=== PATIENT | male | born 1995 | race African-American/Black ===

== ENCOUNTER 2022-12-23 19:59 | Inpatient (IN) | payer BC, SELFPAY ==
[2022-12-23 20:42] LABS: #Basophils 0.1 thou/uL (0.0-0.2); #Eosinphils 0.2 thou/uL (0.0-0.7); #Lymphocytes 2.7 thou/uL (1.20-3.40); #Monocytes 0.8 thou/uL (0.11-0.59); #Neutrophils 10.7 thou/uL (1.40-6.50); %Basophils 0.6 % (0.0-1.0); %Eosinophils 1.1 % (0.0-10.0); %Lymphocytes 18.7 % (21.0-51.0); %Monocytes 5.3 % (0.0-10.0); %Neutrophils 74.4 % (42.0-75.0); Hemoglobin 15.3 g/dL (14.0-18.0); Mean Corpuscular HGB CONC 34.6 g/dL (32.0-36.0); Mean Corpuscular Hemoglobin 30.9 pg (27.0-31.0); Mean Corpuscular Volume 89.2 fl (78.0-98.0); Mean Platelet Volume 7.8 fL (7.4-10.4); Platelet Count 202 10x3/uL (130-400); RBC Distribution Width 11.1 % (11.5-14.5); Red Blood Cell (RBC) Count 4.94 mill/uL (4.70-6.10); White Blood Cell (WBC) Count 14.4 10x3/uL (4.8-10.8)
[2022-12-23 20:52] LABS: ALT (SGPT) 29 U/L (8-55); AST (SGOT) 34 U/L (5-34); Albumin 4.3 g/dL (3.5-5.0); Alkaline Phosphatase 73 U/L (40-110); Anion Gap 14 mmol/L (10-20); BUN (Urea Nitrogen) 15 mg/dL (8.9-20.6); Bilirubin, Total 0.4 mg/dL (0.2-1.2); Calc. Creatinine Clearance 0 mL/min (70-130); Calcium 9.5 mg/dL (7.8-10.44); Carbon Dioxide 23 mmol/L (22-29); Chloride 104 mmol/L (98-107); Estimated GFR 88; Globulin 3.3 g/dL (2.4-3.5); Glucose 147 mg/dL (70-105); Potassium 3.2 mmol/L (3.5-5.1); Protein, Total 7.6 g/dL (6.0-8.3); Sodium 138 mmol/L (136-145)
[2022-12-23 21:13] LABS: CKMB 2.5 ng/mL (0-6.6)
[2022-12-23] MEDS ORDERED: Heparin 10,000 UNITS/ 10 ML VIAL ONE (21:36)
[2022-12-23] MEDS ORDERED: Heparin 25,000 units/D5W 500 ML ONE (21:37)
[2022-12-23 21:47] LABS: Acetaminophen Less than 10.0 mcg/mL (10.0-30.0); Alcohol Less than 10 mg/dL (Less than 10); Salicylate Less than 8.0 mg/dL (15.0-30.0)
[2022-12-23 21:50] LABS: INR-International Normal Ratio 1.1; PTT 26.9 sec (22.9-36.1); Prothrombin Time 14.4 sec (12.0-14.7)
[2022-12-23] MEDS ORDERED: Furosemide 20 MG/2 ML VIAL ONE (22:03)
[2022-12-23 22:15] LABS: SARS-CoV-2 NAA Rapid Test Not Detected (NotDetected)
[2022-12-23 23:30] VITALS: BMI 49.1
[2022-12-23] MEDS ORDERED: Acetaminophen 325 MG TAB PO PRN (23:50)
[2022-12-23] MEDS ORDERED: Acetaminophen 650 MG Suppository PR PRN (23:50)
[2022-12-23] MEDS ORDERED: Nitroglycerin 0.4 MG TAB (25 Tab Bottle) SL PRN (23:50)
[2022-12-23] MEDS ORDERED: Ondansetron ODT 4 MG TAB PO PRN (23:50)
[2022-12-23] MEDS ORDERED: Ondansetron PF 4 MG/2 ML Vial IVP PRN (23:50)
[2022-12-24 01:11] LABS: Troponin I 1.888 ng/mL (< 0.028)
[2022-12-24] MEDS ORDERED: Electrolyte Replacement Protocol 1 EACH FS SCH (03:15)
[2022-12-24] MEDS ORDERED: Potassium Chloride 20 MEQ TAB PO SCH (03:30)
[2022-12-24 04:29] LABS: #Lymphocytes 1.6 thou/uL (1.20-3.40); #Monocytes 0.5 thou/uL (0.11-0.59); #Neutrophils 8.9 thou/uL (1.40-6.50); %Basophils 0.3 % (0.0-1.0); %Eosinophils 0.4 % (0.0-10.0); %Lymphocytes 14.6 % (21.0-51.0); %Monocytes 4.6 % (0.0-10.0); %Neutrophils 80.1 % (42.0-75.0); Hemoglobin 14.5 g/dL (14.0-18.0); Mean Corpuscular HGB CONC 34.7 g/dL (32.0-36.0); Mean Corpuscular Hemoglobin 30.9 pg (27.0-31.0); Mean Corpuscular Volume 88.9 fl (78.0-98.0); Mean Platelet Volume 8.4 fL (7.4-10.4); Platelet Count 193 10x3/uL (130-400); RBC Distribution Width 11.1 % (11.5-14.5); White Blood Cell (WBC) Count 11.1 10x3/uL (4.8-10.8)
[2022-12-24 04:58] LABS: Anion Gap 16 mmol/L (10-20); BUN (Urea Nitrogen) 15 mg/dL (8.9-20.6); Calc. Creatinine Clearance 299 mL/min (70-130); Calcium 9.5 mg/dL (7.8-10.44); Carbon Dioxide 20 mmol/L (22-29); Cardiac Risk 3.2 (Less than 4.5); Chloride 106 mmol/L (98-107); Cholesterol 146 mg/dl (< 200 Desired); Estimated GFR 123; Glucose 77 mg/dL (70-105); HDL Cholesterol 45 mg/dL (>60 Neg Risk); LDL Cholesterol, Calculated 86 mg/dL; Magnesium 1.8 mg/dL (1.6-2.6); Potassium 4.4 mmol/L (3.5-5.1); Sodium 138 mmol/L (136-145); Triglycerides 75 mg/dL (Less than 150)
[2022-12-24 05:03] LABS: Troponin I 2.397 ng/mL (< 0.028)
[2022-12-24] MEDS ORDERED: Magnesium 2 GM/50 ML(in water) 2 GM in Premix Bag 1 BAG IVPB SCH (08:00)
[2022-12-24 09:03] LABS: Amphetamine Not Detected (NotDetected); Barbiturates Screen Not Detected (NotDetected); Benzodiazepine Screen Not Detected (NotDetected); Cocaine Metabolite Screen Not Detected (NotDetected); Methadone Not Detected (NotDetected); Methamphetamine Not Detected (NotDetected); Opiate Screen Not Detected (NotDetected); Oxycodone Screen Not Detected (NotDetected); Phencyclidine (PCP) Not Detected (NotDetected); THC/Cannabinoid Screen Not Detected (NotDetected); Tricyclic Screen Not Detected (NotDetected)
[2022-12-24] MEDS: Aspirin Chewable 81 MG TAB PO SCH (09:03)
[2022-12-24] MEDS ORDERED: Iopamidol-370 76% 500 ML MDV (1 ML CHARGE) ONE (09:31)
[2022-12-24] MEDS ORDERED: Sodium Chloride 0.9% 1,000 ML IV SCH (10:30)
[2022-12-24 22:34] LABS: CKMB 7.1 ng/mL (0-6.6)
[2022-12-24 22:36] LABS: Critical Call Chem Troponin I RESULT DECREASING; Troponin I 0.558 ng/mL (< 0.028)
[2022-12-24] MEDS ORDERED: Morphine 4 MG/ML VIAL SLOW IVP PRN (23:20)
[2022-12-25 04:21] LABS: Anion Gap 12 mmol/L (10-20); BUN (Urea Nitrogen) 13 mg/dL (8.9-20.6); Calc. Creatinine Clearance 303 mL/min (70-130); Calcium 9.3 mg/dL (7.8-10.44); Carbon Dioxide 23 mmol/L (22-29); Chloride 105 mmol/L (98-107); Estimated GFR 123; Glucose 103 mg/dL (70-105); Potassium 4.1 mmol/L (3.5-5.1); Sodium 136 mmol/L (136-145)
[2022-12-25 04:32] LABS: Critical Call Chem Troponin I RESULT DECREASING; Troponin I 0.472 ng/mL (< 0.028)
[2022-12-25 05:45] LABS: #Lymphocytes 2.1 thou/uL (1.20-3.40); #Monocytes 1.1 thou/uL (0.11-0.59); #Neutrophils 8.3 thou/uL (1.40-6.50); %Basophils 0.4 % (0.0-1.0); %Eosinophils 0.3 % (0.0-10.0); %Monocytes 9.2 % (0.0-10.0); %Neutrophils 72.1 % (42.0-75.0); Hemoglobin 14.5 g/dL (14.0-18.0); Mean Corpuscular HGB CONC 34.2 g/dL (32.0-36.0); Mean Corpuscular Hemoglobin 30.6 pg (27.0-31.0); Mean Corpuscular Volume 89.5 fl (78.0-98.0); Platelet Count 180 10x3/uL (130-400); RBC Distribution Width 11.3 % (11.5-14.5); Red Blood Cell (RBC) Count 4.73 mill/uL (4.70-6.10); White Blood Cell (WBC) Count 11.5 10x3/uL (4.8-10.8)
[2022-12-25] MEDS: Aspirin Chewable 81 MG TAB PO SCH (09:06)
[2022-12-26] MEDS: Apixaban 5 MG TAB PO SCH ×2 (01:46→13:06)
[2022-12-26 07:42] VITALS: TEMP 98.8
[2022-12-26] MEDS: Aspirin Chewable 81 MG TAB PO SCH (08:46)
[2022-12-26] MEDS ORDERED: FLU VACC QS2022-23(6MO UP)/PF 60 MCG/0.5 ML SYRINGE IM ONE (09:00)
== END 2022-12-26 14:05 | disposition home or self-care (01) | DRG 314 ==
LOC: ERS 19:59 → IMCU/EMU 22:20
PROVIDERS: ADMIT Student in an Organized Health Care Education/Training Program; ATTEND Family Medicine
DX: I51.81 Takotsubo syndrome (principal); I26.99 Other pulmonary embolism without acute cor pulmonale; J96.01 Acute respiratory failure with hypoxia; I82.432 Acute embolism and thrombosis of left popliteal vein; Z68.42 Body mass index [BMI] 45.0-49.9, adult; I24.8 Other forms of acute ischemic heart disease; Z20.822 Contact with and (suspected) exposure to COVID-19; E66.01 Morbid (severe) obesity due to excess calories; D72.829 Elevated white blood cell count, unspecified; E87.6 Hypokalemia; I45.19 Other right bundle-branch block; I27.20 Pulmonary hypertension, unspecified
CPT/HCPCS: 36415; 71045; 71275; 80048; 80053; 80061; 80306; 80307; 82553; 83036; 83735; 83880; 84484; 85025; 85610; 85730; 93005; 93010; 93306; 93970; 94760; J1644; J1650; J1940; J2270; J3475; J7050; Q9967